=== PATIENT | female | born 1970 | race African-American/Black ===

== ENCOUNTER 2020-11-17 12:18 | Outpatient (REF) | payer MEDICAID, OTHER, SELFPAY | END 2020-11-17 12:19 | disposition home or self-care (01) | LOC: HO.LAB 12:18 | PROVIDERS: Visit Provider Internal Medicine | DX: Z20.822 Contact with and (suspected) exposure to COVID-19 (principal) | CPT/HCPCS: 36415; C9803; U0003 ==

== ENCOUNTER 2020-11-27 13:31 | Outpatient (REF) | payer MEDICAID, OTHER, SELFPAY | END 2020-11-27 13:32 | disposition home or self-care (01) | LOC: HO.LAB 13:31 | PROVIDERS: Visit Provider Internal Medicine | DX: Z20.822 Contact with and (suspected) exposure to COVID-19 (principal) | CPT/HCPCS: 36415; C9803; U0003; U0005 ==

== ENCOUNTER 2021-10-17 09:45 | Outpatient (REF) | payer MEDICAID, SELFPAY ==
--- NOTE | ~2021-10-17 | MM_ITS ---
EXAMINATION: MM SCREENING DIGITAL BREAST TOMOSYNTHESIS, BILATERAL CLINICAL INFORMATION: Screening. Asymptomatic. The lifetime risk of breast cancer based on the Tyrer-Cuzick Model is 7%. COMPARISON: Mammography: 01/22/2018, 01/06/2017 (new baseline). TECHNIQUE: Digital breast tomosynthesis is performed in both the craniocaudal and mediolateral oblique views along with computer-aided detection (CAD). Synthesized 2D images are generated from the tomosynthesis. FINDINGS: There are scattered areas of fibroglandular density (ACR BI-RADS breast composition Category b). There are no significant masses, abnormal calcifications, or other abnormalities. The axilla and skin contours are unremarkable. MM/MM tomosynthesis screening BI IMPRESSION: No mammographic evidence of malignancy. ASSESSMENT: BI-RADS 1: Negative RECOMMENDATION: Routine annual mammography screening. This patient's information was entered into a reminder system with a target due date for their next mammogram.
== END 2021-10-17 09:46 | disposition home or self-care (01) ==
LOC: HO.MAMMO 09:45
PROVIDERS: PCP Internal Medicine; Visit Provider Internal Medicine
DX: Z12.31 Encounter for screening mammogram for malignant neoplasm of breast (principal)
CPT/HCPCS: 77063; 77067

== ENCOUNTER 2023-08-07 09:40 | Outpatient (REF) | payer OTHER, SELFPAY ==
[2023-08-07 12:11] LABS: Alanine Aminotransferase 19 U/L (0-31); Albumin Level 3.8 g/dL (3.5-5.0); Alkaline Phosphatase 192 U/L (39-117); Anion Gap 11 (12-20); Aspartate Amino Transferase 20 U/L (5-31); Bilirubin Total 0.4 mg/dL (0.0-1.0); Blood Urea Nitrogen 8 mg/dL (9-16); Calcium 9.5 mg/dL (8.4-10.2); Carbon Dioxide 28 mmol/L (22-29); Chloride 104 mmol/L (96-108); Estimated Glomerular Filt Rate > 60; Glucose Random 132 mg/dL (60-115); Lipase 13 U/L (8-78); Potassium 3.4 mmol/L (3.3-5.1); Sodium 140 mmol/L (135-145); Total Protein 7.4 g/dL (6.5-8.0)
== END 2023-08-07 09:41 | disposition home or self-care (01) ==
LOC: HO.HHCL 09:40
PROVIDERS: Visit Provider Student in an Organized Health Care Education/Training Program
DX: R10.13 Epigastric pain (principal)
CPT/HCPCS: 36415; 80053; 83690

== ENCOUNTER 2024-05-10 14:14 | Outpatient (REF) | payer OTHER, SELFPAY ==
--- NOTE | ~2024-05-10 | MM_ITS ---
EXAMINATION: MM DIAGNOSTIC DIGITAL BREAST TOMOSYNTHESIS, BILATERAL US BREAST LIMITED, LEFT MAMMOGRAPHY: CLINICAL INFORMATION: 54-year-old female complaining of left breast pain all over , however states currently has resolved. Due for bilateral. COMPARISON: Mammography: 10/17/2021, 08/04/2018, 01/22/2018, 01/08/2017. TECHNIQUE: Digital breast tomosynthesis is performed in both the craniocaudal and mediolateral oblique views along with computer-aided detection (CAD). Synthesized 2D images are generated from the tomosynthesis. FINDINGS: The breasts are heterogeneously dense, which may obscure small masses (ACR BI-RADS breast composition Category c). There are no suspicious masses, suspicious grouped calcifications, or areas of architectural distortion in either breast. The parenchymal pattern is stable from prior exams. There is no skin or axillary abnormality. There is no mammographic abnormality in the left breast to explain diffuse left breast pain. ULTRASOUND: CLINICAL INFORMATION: As above. COMPARISON: None TECHNIQUE: Targeted sonographic evaluation left breast all 4 quadrants was performed using a high frequency linear transducer. Selected archived documentation. FINDINGS: LEFT BREAST: There is heterogeneously dense fibroglandular tissue. No suspicious mass is seen. No cystic abnormality. There is no pathologic acoustic shadowing. No sonographic abnormality to explain diffuse left breast pain. MM/MM tomosynthesis diagnostic BI IMPRESSION: There are no findings suspicious for malignancy in either breast. There are no mammographic or sonographic findings to explain diffuse left breast pain (which has currently resolved). Recommend clinical management. Otherwise, recommend resuming annual screening. OVERALL ASSESSMENT: Mammography: BI-RADS 1 - Negative Ultrasound: BI-RADS 1 - Negative RECOMMENDATION: 1 year F/U Results were provided to the patient at time of visit by the technologist. This patient's information was entered into a reminder system with a target due date for their next mammogram.
== END 2024-05-10 14:15 | disposition home or self-care (01) ==
LOC: HO.MAMMO 14:14
PROVIDERS: PCP Internal Medicine; Visit Provider Internal Medicine
DX: N64.4 Mastodynia (principal)
CPT/HCPCS: 76642; 77062; 77066

== ENCOUNTER → 2024-05-10 14:30 | Outpatient (BNV) | payer OTHER, SELFPAY | PROVIDERS: PCP Internal Medicine; Visit Provider Radiology Diagnostic Radiology | DX: N64.4 Mastodynia (principal) | CPT/HCPCS: 76642; 77062; 77066 ==

== ENCOUNTER 2024-08-03 08:54 | Outpatient (REF) | payer OTHER, SELFPAY ==
[2024-08-03 12:16] LABS: Alanine Aminotransferase 21 U/L (0-31); Alkaline Phosphatase 88 U/L (39-117); Anion Gap 12 (12-20); Aspartate Amino Transferase 22 U/L (5-31); Bilirubin Total 0.4 mg/dL (0.0-1.0); Blood Urea Nitrogen 16 mg/dL (9-16); Calcium 9.7 mg/dL (8.4-10.2); Carbon Dioxide 28 mmol/L (22-29); Chloride 105 mmol/L (96-108); Cholesterol 198 mg/dL (<200); Estimated Glomerular Filt Rate 60; Glucose Random 149 mg/dL (60-115); HDL Cholesterol 55 mg/dL (>40); LDL Cholesterol Calculated 126 mg/dL (<100); Potassium 3.8 mmol/L (3.3-5.1); Sodium 141 mmol/L (135-145); Total Protein 7.6 g/dL (6.5-8.0); Triglycerides 87 mg/dL (<150)
[2024-08-03 12:18] LABS: TSH reflex Free T4 5.45 uIU/mL (0.32-4.0); Vitamin D 25-OH Total 33.7 ng/mL (>30)
[2024-08-03 12:56] LABS: Reflex LDLD? No
[2024-08-03 13:25] LABS: Free T4 (Free Thyroxine) 1.02 ng/dL (0.71-1.85)
== END 2024-08-03 08:55 | disposition home or self-care (01) ==
LOC: HO.HHCL 08:54
PROVIDERS: Visit Provider Internal Medicine
DX: E11.9 Type 2 diabetes mellitus without complications (principal)
CPT/HCPCS: 36415; 80053; 80061; 82306; 84439; 84443

== ENCOUNTER 2025-04-01 08:12 | Outpatient (REF) | payer OTHER, SELFPAY ==
--- OUTSIDE RECORDS SUMMARY | 2025-04-01 08:16 | XMS_ITS | Encounter Summary ---
Author Organization [employer] Address [address] [place] [address] Care Team Providers Care Elementary Math Tutor Name Role Phone Deidra Grimaldo MD Primary Care Provider + Reason for Visit * Reason Onset Date Comments chart prep 03/31/2025 Encounter Details Date Type Department Care Team ([facility] Contact Info) Description 03/31/2025 Telephone [facility] [address] [place], [place] [phone] Deidra Grimaldo MD [address] [place], [place] [phone] chart prep Social History Tobacco Use Types Packs/Day Years Used Date Smoking Tobacco: Never Passive Smoke Exposure: Never Smokeless Tobacco: Never Alcohol Use Standard Drinks/Week Comments Not Currently 0 (1 standard drink = 0.6 oz pur e alcohol) oca Depression Answer Date Recorded Patient Health Questionnaire-9 Score 0 06/25/2024 Patient Health Questionnaire-9 Score 0 06/25/2024 Last PHQ-9: Questionnaire Data Not on file 0 06/25/2024 Housing Stability Answer Date Recorded What is your housing situation today? I have vicky wylie 06/25/[address] you li ve. Do you have problems with any of the following? None of the above 06/25/2024 Food Insecurity Answer Date Recorded Within the past 12 months, y ou worried that your food would run out before you got money to buy more: Never True 06/25/2024 Within the past 12 months,th e food you bought just didn't last and you didn't have enough money to get more: Never True 03/2024 Transportation Answer Date Recorded In the past 12 months, has l ack of transportation kept you from medical appts, meetings, work or from getting things needed for daily living? No 06/25/2024 Utilities Answer Date Recorded In the past 12 months, has t he electric, gas, oil or water company threatened to shut off services in your home? No 06/25/2024 Depression Answer Date Recorded Patient Health Questionnaire-2 Score 0 06/25/2024 Internet Access Answer Date Recorded Internet Access Q1 Yes 06/25/2024 Internet Access Q2 Not on file 06/25/2024 Comments No Sex and Gender Information Value Date Recorded Sex Assigned at Female 08/19/2022 10:31 AM EDT Legal Sex Female 10:31 AM EDT Gender Identity Female 08/19/2022 10:31 AM EDT Sexual Orientation Straight 08/19/2022 10 :31 AM EDT documented as of this encounter Miscellaneous Notes * Telephone Encounter - Cheyanne Leger MA - 03/31/2025 11:01 AM EDT Chart Prep Labs: not done from 09/2024 ( LVM informing pt about blood work) Images: done Referrals: complete Vaccines due: Covid, PCV20, Hep B, and Zoster Screenings: not applicable Overdue care gaps: A1c, Glucose, SBIRT, SDOH, PHQ-9, EVY-7, Disability screen, and Tobacco documented in this encounter Plan of Treatment Upcoming Encounters Date Type Department Care Team (Late st Contact Info) Description 04/01/2025 9:00 AM EDT Office Visit [facility] [address] [place] [phone] Deidra Grimaldo MD [address] [place] [address] 04/05/2025 9:00 AM EDT Office Visit [facility] DENTAL [address] [place] [address] Camron De La Fuente DDS [address] [place] [phone] documented as of this encounter Visit Diagnoses Not on filedocumented in this encounter Additional Health Concerns Assessment Noted Time PHQ-9 Depression Total Score: 0 06/25/20 24 10:24 AM EDT documented as of this encounter Care Teams Elementary Math Tutor Relationship Specialty Start Date End Date Deidra Grimaldo MD [address] [place] [id number] PCP - General Family Medicine 07/18/17 documented as of this encounter
[2025-04-01 11:30] LABS: Alanine Aminotransferase 26 U/L (0-31); Alkaline Phosphatase 97 U/L (39-117); Aspartate Amino Transferase 27 U/L (5-31); Bilirubin Direct 0.2 mg/dL (0.0-0.5); Bilirubin Total 0.4 mg/dL (0.0-1.0)
[2025-04-01 11:49] LABS: Free T4 (Free Thyroxine) 1.04 ng/dL (0.71-1.85); T4 Thyroxine 7.3 ug/dL (4.5-12.0); Thyroid Stimulating Hormone 4.43 uIU/mL (0.32-4.0)
[2025-04-02 04:04] LABS: Triiodothyronine T3 Free 3.7 pg/mL (2.3-4.2); Triiodothyronine T3 Total 124 ng/dL (76-181)
== END 2025-04-01 08:13 | disposition home or self-care (01) ==
LOC: HO.HHCL 08:12
PROVIDERS: Visit Provider Internal Medicine
DX: E11.9 Type 2 diabetes mellitus without complications (principal)
CPT/HCPCS: 36415; 80076; 84436; 84439; 84443; 84480; 84481

== ENCOUNTER 2025-04-01 09:45 | Outpatient (REF) | payer OTHER, SELFPAY ==
[2025-04-01 11:40] LABS: Cholesterol 212 mg/dL (<200); HDL Cholesterol 52 mg/dL (>40); LDL Cholesterol Calculated 139 mg/dL (<100); Triglycerides 109 mg/dL (<150)
[2025-04-01 11:41] LABS: Reflex LDLD? No
[2025-04-01 12:55] LABS: Creatinine Urine 183.53 mg/dL; Microalbumin Urine < 5.0 mg/L
== END 2025-04-01 09:46 | disposition home or self-care (01) ==
LOC: HO.HHCL 09:45
PROVIDERS: Visit Provider Internal Medicine
DX: E78.00 Pure hypercholesterolemia, unspecified (principal); E11.9 Type 2 diabetes mellitus without complications
CPT/HCPCS: 36415; 80061; 82043; 82570

== ENCOUNTER 2025-05-19 10:00 | Outpatient (REF) | payer OTHER, SELFPAY ==
--- OUTSIDE RECORDS SUMMARY | 2025-05-19 10:39 | XMS_ITS | Clinical Summary ---
Author Organization [employer] Address [address] [place] [address] Care Team Providers Care Express Clerk Name Role Phone Deidra Grimaldo MD Primary Care Provider + Allergies No known active allergies Medications TRUEplus Lancets 33G misc USE 1 TO TEST BLOOD SUGAR EVERY DAY 100 each 11 3 Active Additional Information Patient not taking.Reported on 04/05/2025 glucose blood (FREESTYLE LITE) test strip USE 1 TO TEST BLOOD SUGAR TWICE DAILY 50 each 3 Active pravastatin (Pravachol) 40 MG tablet Take 1 tablet (40 mg) by mouth Once per day. 30 tablet 4 09/24/20 25 Active Additional Information Patient not taking.Reported on 04/05/2025 Blood Pressure kit Use to check BP as advised. 1 kit 4 Active Blood Glucose Monitoring Suppl (FreeStyle Lite) w/Device kit 1 kit Once per day. Use to check BS daily. 1 kit 4 Active omeprazole (PriLOSEC) [address] capsule TAKE 1 CAPSULE BY MOUTH EVERY DAY BEFORE BREAKFAST. DO NOT BREAK, CRUSH, DISSOLVE OR CHEW. 90 capsule 1 5 Active losartan-hydroCH LOROthiazide (Hyzaar) 100-25 MG tabletIndication s:Primary hypertension TAKE 1 TABLET BY MOUTH EVERY DAY 90 tablet 1 5 Active metFORMIN XR (Glucophage-XR) 500 MG 24 hr tablet Take 1 tablet (500 mg) by mouth with evening meal. Do not crush, chew, or split. 90 tablet 3 5 Active Active Problems Problem Noted Date Diagnosed Date Dental caries into pulp 04/05/2025 Dental abscess 04/05/2025 Overweight 04/01/2025 Assessment & Plan (04/01/2025 9:25 AM EDT): Discussed re weight reduction options including exercise, life style modifications, diet. Recommended to decrease soda and sugary beverage consumption, increase protein intake with meals (at least 1 portion of protein with each meal) to assist with satiety, increase dietary fiber Recommended at least 150 min/week of moderate intensity exercise. Weight has remained stable for about a year now, she declined referral to dietitian at this time. Metformin has been started for diabetes control which will also help with weight reduction. Follow-up in 3 to 4 months Myalgia due to statin 09/24/2024 Assessment & Plan (09/24/2024 3:26 PM EST): DC atorvastatin and use pravastatin, fu in 2mo. Re consult prn if sxs do not improve. Encounter for preventive health examination 03/2024 Assessment & Plan (06/25/2024 11:56 AM EDT): Discussed with patient re increase fresh fruit and vegetable intake. Counseled re moderate exercise as tolerated, up to 20min/d Patient feels safe at home. PAP smear: UTD, next one due on 2026 Mammogram: UTD, next one due 04/2025 Eye exam: UTD, scheduled for 10/2024 CRC screen: UTD, next one due 2031 Lipids/FBS: Overdue, to be ordered Vaccinations: Overdue, advised to get TDAP, PCV, Zoster, HEP B, but she declined today. Advised to get Covid and Flu in the fall, will follow up in 3 months. Dental visit: Advised to make an appointment at [facility]. Epigastric pain 08/07/2023 Assessment & Plan (08/07/2023 10:49 PM EDT): Symptoms are consistent with possible Gastritis,gastroenteritis and less likely pancreatitis , Also not clear findings concerning for cholelithiasis w no pain in RUQ Abd exam is benign and overall reports improvement -advised hydration -omeprazole -discussed diet -to avoid spicy,citric ,fatty food -check chem,lipase -alarm signs and symptoms ,if persist to consider abd image but low concern for GB at this time but would refer if pain persisit Pure hypercholesterolemia 02/21/2023 Assessment & Plan (09/24/2024 3:28 PM EST): Doesn't tolerate atorvastatin, will switch to pravastatin. We discussed re rx options. Recommended moderate amount of exercise and increase consumption of fruit, vegetables, fish and high fiber foods. Should decrease consumption of highly saturated fats or trans fats. Assessment & Plan (02/21/2023 11:12 AM EDT): Her 10 year ACEVD risk is 5.4, moderate statin is advised. Case with discussed with pt and she declined to start atorvastatin today she wants to continue making dietary modifications. Repeaat lipids in 3 months. Abnormal TSH 02/21/2023 Assessment & Plan (04/01/2025 9:24 AM EDT): TFTs done last year, rule out Rey, patient did not have blood drawn for today's appointment. Patient will go today to the labs to get follow-up TFTs and will follow-up with her if she has abnormal labs. Assessment & Plan (02/21/2023 11:13 AM EDT): r/o Rey, no evidence of thyroiditiis at this time discussed wt patient regarding condition and agreed to repeat TFTs and other thyroid tests at next visit reconsult PRN sore throat, episode of unexplained fever Synovial cyst of left popliteal space 02/18/2023 Degenerative tear of left medial meniscus 2022 Primary osteoarthritis of left knee 01/22/2023 Chronic bilateral low back pain without sciatica 01/22/2023 Chronic pain of both shoulders 01/22/2023 Assessment & Plan (01/22/2023 11:00 AM EDT): Pt seems to have muscle spasms recommended heat to affected area Tylenol BID x1 week and then PRN FU with me next month Diarrhea 10/17/2021 Chronic abdominal pain 10/17/2021 Right upper quadrant pain 01/06/2019 Type 2 diabetes mellitus without complication Assessment & Plan (04/01/2025 9:23 AM EDT): Uncontrolled, A1c is mildly high and has been ranging around the same number for the past year or so. She is not compliant with metformin. We discussed importance of diabetes control to avoid short and long-term cardiovascular complications, I gave her information about it. I strongly encourage to take metformin once daily with main meal and check fingersticks once a day. Counseled regarding frequent and low calorie/carb meals as well as increase physical activity as tolerated Foot examination is normal and she does not have diabetic neuropathy. Check lipid profile and follow-up with me in 3 to 4 months. Assessment & Plan (09/24/2024 3:27 PM EST): Not improving with low dose of metformin, she doesn't want to increase to recommended dose bid. Counseled re more frequent low calorie/carb meals. Check fgstk 1x daily Encouraged physical activity as tolerated. FU in 3 months. Assessment & Plan (06/25/2024 11:51 AM EDT): Uncontrolled, A1c not at goal. Advised to take Metformin daily with main meal. Counseled re more frequent low calorie/carb meals. Check fgstk once daily Encouraged physical activity as tolerated. Ophthalmology evaluation scheduled for 10/2024. FU in 3 months or less. Assessment & Plan (02/21/2023 11:14 AM EDT): Most likely still uncontrolled. discussed with patient the importance of strict dietary compliance Continue metformin XR 500mg per day and FU in 2 months Counseled re more frequent low calorie/carb meals. Encouraged physical activity as tolerated. Assessment & Plan (01/22/2023 10:59 AM EDT): A1C is 7.4 stressed importance of dietary compliance and exercise continue metformin XR 500mg and FU with me in 1 month with labs [facility]charge from [facility] 07/28/2018 Vitamin D deficiency 08/26/2017 Assessment & Plan (01/22/2023 11:00 AM EDT): Completed supplementation last year. Did not tolerate calcium + D daily. Check Vit D levels. DC calcium + D and start tums BID only, will FU lab results Benign hypertension 07/31/2017 Assessment & Plan (02/21/2023 11:13 AM EDT): BP is at goal. We discussed that bp can change depeneding on pain, diet continue HCTZ and fu with me in 6 months. Assessment & Plan (01/22/2023 10:58 AM EDT): Slightly uncontrolled, probably related to acute pain no change in medications pt to check BP at home twice per week and FU with me next month, order labs Visual impairment 07/31/2017 Resolved Problems Problem Noted Date Diagnosed Date Resolved Date Weight loss 10/17/2021 04/01/2025 IFG (impaired fasting glucose) 08/26/2017 04/01/2025 Encounters Date Type Department Care Team Description 04/05/2025 9:00 AM EDT Office Visit [facility] [address] [place] [address] Camron De La Fuente DDS Dental caries into pulp (Primary Dx); Dental abscess 04/01/2025 9:00 AM EDT Office Visit [address] [id number] Deidra Grimaldo MD Abnormal TSH (Primary Dx); Type 2 diabetes mellitus without complication, without long-term current use of insulin ([facility]); Overweight; Dietary counseling; Exercise counseling 04/01/2025 Results Follow-Up [address] [address] Deidra Grimaldo MD Lipid Panel with Reflex to Direct LDL 04/01/2025 Travel 03/31/2025 Telephone [facility] [address] [place], [place] [phone] Deidra Grimaldo MD chart prep 03/21/2025 9:30 AM EDT Office Visit [facility] [address] [place] [address] Adriana Muir, DDS Dental caries (Primary Dx); Dental abscess 02/22/2025 Refill [facility] [address] [place] [address] Deidra Grimaldo MD Primary hypertension from Last 3 Months Family History Medical History Relation Name Comments Diabetes Father Hypertension Father Hypertension Mother Relation Name Status Comments Father Mother Social History Tobacco Use Types Packs/Day Years Used Date Smoking Tobacco: Never Passive Smoke Exposure: Never Smokeless Tobacco: Never Tobacco Cessation:Counseling Given: Not Answered Alcohol Use Standard Drinks/Week Comments Not Currently 0 (1 standard drink = 0.6 oz pur e alcohol) oca Alcohol Answer Date Recorded How often do you have a drink containing alcohol ? 0 04/01/2025 How many drinks containing a lcohol do you have on a typical day when you are drinking? 0 04/01/2025 How often do you have six or more drinks on one occasion? 0 04/01/2025 Depression Answer Date Recorded Patient Health Questionnaire-9 Score 0 06/25/2024 Patient Health Questionnaire-9 Score 0 06/25/2024 Last PHQ-9: Questionnaire Data Not on file 0 06/25/2024 Housing Stability Answer Date Recorded What is your housing situation today? I have vickyciara wylie 06/25/[address] you [...] Date Recorded Patient Health Questionnaire-2 Score 0 04/01/2025 Internet Access Answer Date Recorded Internet Access Q1 Yes 06/25/2024 Internet Access Q2 Not on file 06/25/2024 Comments No Sex and Gender Information Value Date Recorded Sex Assigned at Female 08/19/2022 10:31 AM EDT Legal Sex Female 10:31 AM EDT Gender Identity Female 08/19/2022 10:31 AM EDT Sexual Orientation Straight 08/19/2022 10 :31 AM EDT Last Filed Vital Signs Vital Sign Reading Time Taken Comments Blood Pressure 138/84 04/05/2025 9:05 AM EDT Pulse 60 04/01/2025 8:48 AM EDT Temperature 36.2 C (97.2 F) 04/01/2025 8:48 AM EDT Respiratory Rate 16 04/01/2025 8:48 AM EDT Oxygen Saturation 100% 09/24/2024 11:04 AM EST Inhaled Oxygen Concentration - - Weight 78.6 kg (173 lb 4 oz) 04/01/2025 8:48 AM EDT Height 167.6 cm (5' 6 ) 04/01/2025 8:48 AM EDT Body Mass Index 27.96 04/01/2025 8:48 AM EDT Plan of Treatment Upcoming Encounters Date Type Department Care Team (Late st Contact Info) Description 05/23/2025 8:00 AM EDT Office Visit [facility] [address] [place] [address] Adriana Muir, DDS [address] [place] [address] Health Maintenance Due Date Last Done Comments CT Colonography 1969 Dental Prophylaxis 1969 FIT DNA/Cologuard 1969 FIT 1970 FOBT 1970 HIV Screening 1970 Sigmoidoscopy 1969 Hepatitis C Screening 1987 DTaP/Tdap/Td Vaccines (1 - Tdap) 1988 Hepatitis B Vaccines (1 of 3 - 19+ 3-dose series) 1988 Pneumococcal Vaccine: 50+ Years (1 of 2 - PCV) 1988 Dental Oral Exam 07/06/2017 01/02/2017 Zoster Vaccines (1 of 2) 2019 Dental X-Ray: Full Mouth 01/04/2020 01/02/2017 COVID-19 Vaccine ( season) 2024 11/16/2021, 01/23/2021, 12/26/2020 Mammogram 05/10/2025 05/10/2024, 04/20, 10/17/2021, Additional history exists Influenza Vaccine (#1) 2025 Alcohol/Substance Use Screening 06/25/2025 06/25/2024 SDOH Screening 06/25/2025 06/25/2024 Diabetes: Hemoglobin A1C 07/02/2025 025, 09/24/2024, 06/25/2024, Additional history exists Dental X-Ray: Bitewings 03/22/2026 03/21/2025 Depression Screening 04/01/2026 04/01/2025, 06/25/20 Diabetes: Foot Exam 04/01/2026 04/01/2025, 04/01/2025, 04/01/2025, Additional history exists Diabetes: Urine Protein Screening 04/01/2026 04/01/2025, 02/18/2023, 05/14/2021 Disability Screening 04/01/2026 04/01/2025 Lipid Panel 04/01/2026 04/01/2025, 07/20, 02/18/2023, Additional history exists Tobacco Screening 04/05/2026 04/05/2025 Eye Exam 11/17/2026 11/17/2024, 10/21, 11/17/2024, Additional history exists Cervical Cancer Screening 10/08/2027 HPV/Cotest 10/08/2027 10/08/2022 Pap Smear 10/08/2027 10/08/2022 Colonoscopy 10/28/2031 10/28/2021 Colorectal Cancer Screening 10/28/2031 RSV Patients and Patients Aged 60 years or older (1 - 1-dose 75+ series) 2044 HIB Vaccines Aged Out No longer eligi ble based on patient's age to complete this topic HPV Vaccines Aged Out No longer eligi ble based on patient's age to complete this topic Hepatitis A Vaccines Aged Out No long er eligible based on patient's age to complete this topic IPV Vaccines Aged Out No longer eligi ble based on patient's age to complete this topic Meningococcal B Vaccine Aged Out No l onger eligible based on patient's age to complete this topic Meningococcal Vaccine Aged Out No renetta yasmin eligible based on patient's age to complete this topic RSV under 20 months Aged Out No longe r eligible based on patient's age to complete this topic Rotavirus Vaccines Aged Out No longer eligible based on patient's age to complete this topic Procedures Procedure Name Priority Date/Time Associated Diagnosis Comments CASE PRESENTATION, DETAILED AND EXTENSIVE TREATMENT PLANNING Routine 04/05/2025 9:00 AM EDT 29 EXTRACTION, ERUPTED TOOTH OR EXPOSED ROOT (ELEVATION/FORCEPS REMOVAL) Routine 04/05/2025 9:00 AM EDT ALBUMIN, RANDOM URINE W/CREATININE Routine 04/01/2025 9:47 AM EDT Type 2 diabetes mellitus without complication, without long-term current use of insulin (CMS/HCC) LIPID PANEL WITH REFLEX TO DIRECT LDL Routine 04/01/2025 9:47 AM EDT Pure hypercholesterolemia POCT GLYCATED HEMOGLOBIN, TOTAL Routine 04/01/2025 8:54 AM EDT Type 2 diabetes mellitus without complication, without long-term current use of insulin (CMS/HCC) POCT GLUCOSE Routine 04/01/2025 8:49 AM EDT Type 2 diabetes mellitus without complication, without long-term current use of insulin (CMS/HCC) HEPATIC FUNCTION PANEL Routine 04/01/2025 8:13 AM EDT Type 2 diabetes mellitus without complication, without long-term current use of insulin (CMS/HCC) T4 (THYROXINE), TOTAL Routine 04/01/2025 8:13 AM EDT Type 2 diabetes mellitus without complication, without long-term current use of insulin (CMS/HCC) TSH Routine 04/01/2025 8:13 AM EDT Type 2 diabetes mellitus without complication, without long-term current use of insulin (CMS/HCC) T4, FREE Routine 04/01/2025 8:13 AM EDT Type 2 diabetes mellitus without complication, without long-term current use of insulin (CMS/HCC) T3, TOTAL Routine 04/01/2025 8:13 AM EDT Type 2 diabetes mellitus without complication, without long-term current use of insulin ([facility]) T3, FREE Routine 04/01/2025 8:13 AM EDT Type 2 diabetes mellitus without complication, without long-term current use of insulin ([facility]) BITEWING - SINGLE RADIOGRAPHIC IMAGE Routine 03/21/2025 9:30 AM EDT Dental caries Dental abscess CASE PRESENTATION, DETAILED AND EXTENSIVE TREATMENT PLANNING Routine 03/21/2025 9:30 AM EDT Dental caries Dental abscess INTRAORAL - PERIAPICAL FIRST RADIOGRAPHIC IMAGE Routine 03/21/2025 9:30 AM EDT Dental caries Dental abscess PALLIATIVE (EMERGENCY) TREATMENT OF DENTAL PAIN - MINOR PROCEDURE Routine 03/21/2025 9:30 AM EDT Dental caries Dental abscess BI US BREAST LIMITED LEFT Urgent 05/10/2024 3:22 PM EDT HM PAP/HPV Routine 10/08/2022 HM COLONOSCOPY Routine 10/28/2021 9:09 AM EST PANORAMIC RADIOGRAPHIC IMAGE Routine 01/02/2017 12:00 AM EDT COMPREHENSIVE ORAL EVALUATION - NEW OR ESTABLISHED PATIENT Routine 01/02/2017 12:00 AM EDT from Last 3 Months or Most Recently Relevant to Health Maintenance Results * (ABNORMAL) Lipid Panel with Reflex to Direct LDL (04/01/2025 9:47 AM EDT) Triglycerides 109 <150 mg/dL [facility] Comment:Desirable Triglyceri de: less than 150 mg/dLBorderline High Triglyceride 150-199 mg/dLHigh Triglyceride: 200-499 mg/dLVery High Triglyceride: greater than or equal to 5OO mg/dL Cholesterol 212(H) <200 mg/dL [facility] Comment:Desirable Cholestero l: less than 200 mg/dLBorderline High Cholesterol: 200-239 mg/dLHigh Cholesterol: greater than 239 mg/dL LDL Cholesterol Calculated 139(H) <100 mg/dL [facility] Comment:Desirable LDL: less than 100 mg/dLNear Optimal/Above Optimal LDL: 110- 129 mg/dLBorderline High LDL: 130-159 mg/dLHigh LDL: 160-189 mg/dLVery High LDL: greater than or equal to 190 mg/dL HDL Cholesterol 52 >40 mg/dL [facility] Comment:Desirable HDL: great er than 40 mg/dL Note: This HDL assay may give artificially low results in patients with liver disease. Blood 04/01/2025 9:47 AM EDT 04/01/2025 11:01 AM EDT Deidra Grimaldo MD LAB BLOOD ORDERABLES Fin al Result Performing Organization Address [facility] Co de Phone Number [facility] [address] [place] [phone] * Albumin, Random Urine W/Creatinine (04/01/2025 9:47 AM EDT) Creatinine, Urine 183.53 mg/dL [facility] Microalbumin Urine <5.0 mg/L [facility] Microalbum Creatinine Ratio Ur TNP <30 ug/mg cr [facility] Comment:Unable to calculate albumin/creatinine ratio due to lowmicroalbumin or creatinine result. Urine (Urine, Random) 04/01/2025 9:47 AM EDT 04/01/2025 11:08 AM EDT us Deidra Grimaldo MD LAB URINE ORDERABLES Fin al Result Performing Organization Address [facility]/ZIP Co de Phone Number [facility] [address] [place] [phone] * (ABNORMAL) POCT HGB A1C (04/01/2025 8:54 AM EDT) Hemoglobin A1C 7.6(A) 4.0 - 6.0 % QC Media Lot # [id number] Lot# Expiration Date Blood 04/01/2025 8:54 AM EDT Result [facility] Deidra Grimaldo MD POINT OF CARE TEST ENTER /EDIT ORDERABLES Final Result * POCT Glucose (04/01/2025 8:49 AM EDT) Glucose Blood, POC 159 60 - 200 mg/dL QC Media Lot # [id number] Lot# Expiration Date Blood Capillary blood specimen / Unknown 04/01/2025 8:49 AM EDT Result [facility] Deidra Grimaldo MD POINT OF CARE TEST ENTER /EDIT ORDERABLES Final Result * T3, Free (04/01/2025 8:13 AM EDT) T3, Free 3.7 2.3 - 4.2 pg/mL [facility] Comment:THIS TEST WAS PERFOR MED AT:[email or web address] [address] [id number] VEE MD Blood Venous blood specimen / Unknown 04/01/2025 8:13 AM EDT 04/01/2025 11:01 AM EDT Result [facility] Deidra Grimaldo MD LAB BLOOD ORDERABLES Fin al Result [facility] [address] [place] [phone] * T3, Total (04/01/2025 8:13 AM EDT) T3, Total 124 76 - 181 ng/dL [facility] Comment:THIS TEST WAS PERFOR MED AT:[email or web address] [address] [phone] VEE MD Blood Venous blood specimen / Unknown 04/01/2025 8:13 AM EDT 04/01/2025 11:01 AM EDT us Deidra Grimaldo MD LAB BLOOD ORDERABLES Fin al Result Performing Organization Address [facility] de Phone Number [facility] [address] [place] [phone] * (ABNORMAL) TSH (04/01/2025 8:13 AM EDT) Thyroid Stimulating Hormone 4.43(H) 0.32 - 4.0 uIU/mL [facility] Comment:Note: A sustained TS H level above 2.5 uIU/mL may warrant further investigation. TSH 3rd Generation ([facility]) Blood Venous blood specimen / Unknown 04/01/2025 8:13 AM EDT 04/01/2025 11:04 AM EDT Deidra Grimaldo MD LAB BLOOD ORDERABLES Fin al Result Performing Organization Address [facility] de Phone Number [facility] [address] [place] [phone] * T4, Free (04/01/2025 8:13 AM EDT) Free T4 (Free Thyroxine) 1.04 0.71 - 1.85 ng/dL [facility] Blood Venous blood specimen / Unknown 04/01/2025 8:13 AM EDT 04/01/2025 11:04 AM EDT Deidra Grimaldo MD LAB BLOOD ORDERABLES Fin al Result Performing Organization Address [facility] Co de Phone Number [facility] [address] [place] [phone] * T4 (Thyroxine), Total (04/01/2025 8:13 AM EDT) T4 Thyroxine 7.3 4.5 - 12.0 ug/dL [facility] Blood Venous blood specimen / Unknown 04/01/2025 8:13 AM EDT 04/01/2025 11:04 AM EDT us Deidra Grimaldo MD LAB BLOOD ORDERABLES Fin al Result Performing Organization Address City/[facility]/ZIP Co de Phone Number [facility] [address] [place] [phone] * Hepatic Function Panel (04/01/2025 8:13 AM EDT) Bilirubin, Total 0.4 0.0 - 1.0 mg/dL [facility] Bilirubin, Direct 0.2 0.0 - 0.5 mg/dL [facility] Aspartate Amino Transferase 27 5 - 31 U/L [facility] Alanine Aminotransferase 26 0 - 31 U/L [facility] Total Protein 7.0 6.5 - 8.0 g/dL [facility] Albumin Level 4.0 3.5 - 5.0 g/dL [facility] Alkaline Phosphatase 97 39 - 117 U/L [facility] Blood Venous blood specimen / Unknown 04/01/2025 8:13 AM EDT 04/01/2025 11:04 AM EDT Deidra Grimaldo MD LAB BLOOD ORDERABLES Fin al Result Performing Organization Address City/[facility] Co de Phone Number [facility] [address] [place] [phone] * BI US Breast Limited Left (05/10/2024 3:22 PM EDT) Anatomical Region Laterality Modality Breast Left Ultrasound 05/10/2024 3:22 PM EDT Narrative 05/10/2024 3:36 PM EDT [facility] [address] [place] [address] Ultrasound Report Signed Patient: Imani Giraldo MR#: [id number] : 1970 Acct:[id number] Age/Sex: 54 / F ADM Date: 05/10/24 Loc: HO.MAMMO Attending Dr: Deidra Grimaldo MD Ordering Physician: NAPOLEON GALLAGHER CNM Date of Service: 05/10/24 Procedure(s): US breast LT limited mamm only Accession Number(s): [id number] cc: Deidra Grimaldo MD; NAPOLEON GALLAGHER CNM EXAMINATION: MM DIAGNOSTIC DIGITAL BREAST TOMOSYNTHESIS, BILATERAL US BREAST LIMITED, LEFT MAMMOGRAPHY: CLINICAL INFORMATION: 54-year-old female complaining of left breast pain all over , however states currently has resolved. Due for bilateral. COMPARISON: Mammography: 10/17/2021, 08/04/2018, 01/22/2018, 01/08/2017. TECHNIQUE: Digital breast tomosynthesis is performed in both the craniocaudal and mediolateral oblique views along with computer-aided detection (CAD). Synthesized 2D images are generated from the tomosynthesis. FINDINGS: The breasts are heterogeneously dense, which may obscure small masses (ACR BI-RADS breast composition Category c). There are no suspicious masses, suspicious grouped calcifications, or areas of architectural distortion in either breast. The parenchymal pattern is stable from prior exams. There is no skin or axillary abnormality. There is no mammographic abnormality in the left breast to explain diffuse left breast pain. ULTRASOUND: CLINICAL INFORMATION: As above. COMPARISON: None TECHNIQUE: Targeted sonographic evaluation left breast all 4 quadrants was performed using a high frequency linear transducer. Selected archived documentation. FINDINGS: LEFT BREAST: There is heterogeneously dense fibroglandular tissue. No suspicious mass is seen. No cystic abnormality. There is no pathologic acoustic shadowing. No sonographic abnormality to explain diffuse left breast pain. US/US breast LT limited mamm only IMPRESSION: There are no findings suspicious for malignancy in either breast. There are no mammographic or sonographic findings to explain diffuse left breast pain (which has currently resolved). Recommend clinical management. Otherwise, recommend resuming annual screening. OVERALL ASSESSMENT: Mammography: BI-RADS 1 - Negative Ultrasound: BI-RADS 1 - Negative RECOMMENDATION: 1 year F/U Results were provided to the patient at time of visit by the technologist. This patient's information was entered into a reminder system with a target due date for their next mammogram. Dictated By: Efraín Tyler MD Signed By: <Electronically signed by Efraín Tyler MD in OV> 05/10/24 1532 DD/ 1522 TD/TT: Hat Braider: Procedure Note Donotuseinterpreter, Image - 05/10/2024 Dez [facility] [address] [place], [place] [address] Ultrasound Report Signed Patient: Imani Giraldo MR#: [id number] : 1970Acct:[id number] Age/Sex: 54 / FADM Date: 05/10/24 Loc: HO.MAMMO Attending Dr: Deidra Grimaldo MD Ordering Physician: NAPOLEON GALLAGHER CNM Date of Service: 05/10/24 Procedure(s): US breast LT limited mamm only Accession Number(s): [id number] cc: Deidra Grimaldo MD; NAPOLEON GALLAGHER CNM EXAMINATION: MM DIAGNOSTIC DIGITAL BREAST TOMOSYNTHESIS, BILATERAL US BREAST LIMITED, LEFT MAMMOGRAPHY: CLINICAL INFORMATION: 54-year-old female complaining of left breast pain all over , however states currently has resolved. Due for bilateral. COMPARISON: Mammography: 10/17/2021, 08/04/2018, 01/22/2018, 01/08/2017. TECHNIQUE: Digital breast tomosynthesis is performed in both the craniocaudal and mediolateral oblique views along with computer-aided detection (CAD). Synthesized 2D images are generated from the tomosynthesis. FINDINGS: The breasts are heterogeneously dense, which may obscure small masses (ACR BI-RADS breast composition Category c). There are no suspicious masses, suspicious grouped calcifications, or areas of architectural distortion in either breast. The parenchymal pattern is stable from prior exams. There is no skin or axillary abnormality. There is no mammographic abnormality in the left breast to explain diffuse left breast pain. ULTRASOUND: CLINICAL INFORMATION: As above. COMPARISON: None TECHNIQUE: Targeted sonographic evaluation left breast all 4 quadrants was performed using a high frequency linear transducer. Selected archived documentation. FINDINGS: LEFT BREAST: There is heterogeneously dense fibroglandular tissue. No suspicious mass is seen. No cystic abnormality. There is no pathologic acoustic shadowing. No sonographic abnormality to explain diffuse left breast pain. US/US breast LT limited mamm only IMPRESSION: There are no findings suspicious for malignancy in either breast. There are no mammographic or sonographic findings to explain diffuse left breast pain (which has currently resolved). Recommend clinical management. Otherwise, recommend resuming annual screening. OVERALL ASSESSMENT: Mammography: BI-RADS 1 - Negative Ultrasound: BI-RADS 1 - Negative RECOMMENDATION: 1 year F/U Results were provided to the patient at time of visit by the technologist. This patient's information was entered into a reminder system with a target due date for their next mammogram. Dictated By: Efraín Tyler MD Signed By: <Electronically signed by Efraín Tyler MD in OV> 05/10/24 1532 DD/ 1522 TD/TT: Hat Braider: Napoleon AJ IM US PROCEDURES Edited Result - Final * Pap Smear (10/08/2022) Pap Negative for intraephithelial lesion or malignancy Negative for intraephithelial lesion or malignancy, Other HPV Undetected Undetected, Indeterminate, Quantitative, Not Detected Historical Provider HEALTH MAINTENANCE Final Result * Colonoscopy (10/28/2021 9:09 AM EST) Colonoscopy Normal Normal Narrative Bijal Sam - 10/28/2021 9:09 AM EST Recommended 10 year follow up Historical Provider HEALTH MAINTENANCE Edited Result - Final from Last 3 Months or Most Recently Relevant to Health Maintenance Insurance * Guarantor: Imani Giraldo Account Type Relation to Patient Date of Phone Billing Address Personal/Family Self 1970 [address] [facility] * Guarantor: Anamaria Salima Imani Hayes Account Type Relation to Patient Date of Phone Billing Address Dental Self 1970 [address] DENTAL - HSN PARTIAL (MEDICAID) * Guarantor: Conrad Imani Borrego Account Type Relation to Patient Date of Phone Billing Address Personal/Family Self [address] [address] [employer] Express Clerk Relationship Specialty Start Date End Date Deidra Grimaldo MD [address] [place] [address] PCP - General Family Medicine 07/18/17
== END 2025-05-19 10:01 | disposition home or self-care (01) ==
LOC: HO.MAMMO 10:00
PROVIDERS: PCP Internal Medicine; Visit Provider Internal Medicine
DX: Z12.31 Encounter for screening mammogram for malignant neoplasm of breast (principal)
CPT/HCPCS: 77063; 77067

== ENCOUNTER → 2025-05-19 10:15 | Outpatient (BNV) | payer OTHER, SELFPAY | PROVIDERS: PCP Internal Medicine; Visit Provider Internal Medicine | DX: Z12.31 Encounter for screening mammogram for malignant neoplasm of breast (principal) | CPT/HCPCS: 77063; 77067 ==